=== PATIENT | female | born 1955 | race Caucasian/White ===

== ENCOUNTER 2018-04-11 15:42 | Emergency (ER) | payer OTHER ==
[2018-04-11] MEDS ORDERED: DEXAMETHASONE 4 MG TABLET PO ONE (16:40)
[2018-04-11] MEDS ORDERED: METHOCARBAMOL 750 MG TABLET PO ONE (16:40)
[2018-04-11] MEDS ORDERED: IBUPROFEN 800 MG TABLET PO ONE (16:40)
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
[2018-04-11 18:18] VITALS: BP 129/84
== END 2018-04-11 18:18 | disposition home or self-care (01) ==
LOC: ER 15:42
DX: S29.012A Strain of muscle and tendon of back wall of thorax, initial encounter (principal); V87.7XXA Person injured in collision between other specified motor vehicles (traffic), initial encounter; M54.5 Low back pain; M25.512 Pain in left shoulder; F17.210 Nicotine dependence, cigarettes, uncomplicated; I10 Essential (primary) hypertension
CPT/HCPCS: 99406; 99284; 72170; 73030; 73110; 29125; L3908 ×2; J3490